=== PATIENT | male | born 1955 | race Caucasian/White ===

== ENCOUNTER → 2017-03-20 | Outpatient (CLI) | payer BC | END | disposition short-term general hospital (02) | LOC: CLCARD 03-06 02:45 | DX: I25.118 Atherosclerotic heart disease of native coronary artery with other forms of angina pectoris (principal); E78.5 Hyperlipidemia, unspecified; I25.2 Old myocardial infarction; E78.6 Lipoprotein deficiency; I10 Essential (primary) hypertension; Z72.0 Tobacco use; Z98.61 Coronary angioplasty status ==